=== PATIENT | female | born 1995 | race Caucasian/White ===

== ENCOUNTER 2017-01-15 19:06 | Emergency (ER) | payer OTHER ==
[2017-01-15 19:04] LABS: URINE SOURCE CLEAN CATCH
[~2017-01-15 19:06] MED LIST: MACROBID100 MG DOB; NEXPLANON68 MG; TOPAMAX25 MG DOB; VICODIN PO; ZOFRANODT PO
[2017-01-15 19:09] LABS: INFLUENZA A POS (NEG); INFLUENZA B NEG (NEG)
[2017-01-15 19:11] LABS: URINE APPEARANCE CLEAR; URINE BILIRUBIN NEG (NEG); URINE BLOOD NEG (NEG); URINE COLOR YELLOW; URINE GLUCOSE NEG (NEG); URINE KETONE NEG (NEG); URINE LEUKOCYTE ESTERASE 1+ (NEG); URINE NITRATE NEG (NEG); URINE PH 7.5 (5-8); URINE PROTEIN NEG (NEG); URINE SPECIFIC GRAVITY 1.015 (1.003-1.035); URINE UROBILINOGEN 0.2 MG/DL (NEG)
[2017-01-15 19:14] LABS: CULTURE INDICATED? YES; URINE BACTERIA AUWI 1+ (NEGATIVE); URINE SQUAMOUS EPITHELIAL CELL OCC /[HPF]
== END 2017-01-15 19:20 | disposition home or self-care (01) ==
LOC: CFTX 19:06
PROVIDERS: Emergency Medicine; Physician Assistant
DX: J10.1 Influenza due to other identified influenza virus with other respiratory manifestations (principal); G43.909 Migraine, unspecified, not intractable, without status migrainosus; Z90.49 Acquired absence of other specified parts of digestive tract; Z88.8 Allergy status to other drugs, medicaments and biological substances
CPT/HCPCS: 81003; 87086; 87651; 87804; 87880; 99283

== ENCOUNTER 2017-01-17 17:36 | Emergency (ER) | payer OTHER | END 2017-01-17 20:05 | disposition home or self-care (01) | LOC: CFTX 17:36 | DX: O99.513 Diseases of the respiratory system complicating pregnancy, third trimester (principal); J10.1 Influenza due to other identified influenza virus with other respiratory manifestations; G43.909 Migraine, unspecified, not intractable, without status migrainosus; Z3A.35 35 weeks gestation of pregnancy; Z90.49 Acquired absence of other specified parts of digestive tract; Z88.5 Allergy status to narcotic agent | CPT/HCPCS: 94640; 96360; 99284 ==

== ENCOUNTER 2017-03-20 21:51 | Emergency (ER) | payer OTHER ==
--- NOTE | ~2017-03-20 | CR21 ---
[facility] A Service of [facility] & [facility] RADIOLOGY TEXT RESULTS PATIENT: LUIS MCKINNEY LOCATION: [facility] : [birth year] UNIT #: [id number] AGE: [address]: Abiel Bertrand SEX: F ORDER DR: [id number] [facility] [address] [place], [place] [address] [id number] P MR#: [id number] Acc #: [id number] NAME: LUIS MCKINNEY : 1995 SEX: F STUDY DATE/TIME: 03/20/2017 20:32 UNIT: [facility] ROOM: STUDY DESCRIPTION: CR Ankle Min 3 Views Rt Ordering Physician: Ed Edouard Rowan M.D. Primary Care Physician: Brynn Pena M.D. MEDICAL IMAGING REPORT This report is preliminary unless electronic signature is present EXAM Right ankle, 3 views. DATE OF EXAM 03/20/2017 HISTORY Right ankle pain and swelling, status post fall today. FINDINGS 3 views of the right ankle demonstrate no fracture. The bones are normally mineralized and the ankle mortise is intact. There is soft tissue swelling about the right ankle. IMPRESSION Soft tissue swelling about the right ankle. No evidence of fracture. Dictated by... Florin Marquez M.D. THIS IS AN ELECTRONICALLY VERIFIED REPORT Florin Marquez M.D. at 03/21/2017 2:20 PM YSABEL/john TD: 03/20/2017 21:19 JOB #: [id number] MEDICAL IMAGING REPORT Page 1 of 1 COPY
--- NOTE | ~2017-03-20 | CR127 ---
[facility] A Service of [facility] & [facility] RADIOLOGY TEXT RESULTS PATIENT: LUIS MCKINNEY LOCATION: [facility] : [birth year] UNIT #: [id number] AGE: [address]: Abiel Bertrand SEX: F ORDER DR: [id number] [facility] [address] [place], [place] [address] [id number] P MR#: [id number] Acc #: [id number] NAME: LUIS MCKINNEY : 1995 SEX: F STUDY DATE/TIME: 03/20/2017 20:28 UNIT: [facility] ROOM: STUDY DESCRIPTION: CR Foot Complete Min 3 View Rt Ordering Physician: Ed Edouard Rowan M.D. Primary Care Physician: Brynn Pena M.D. MEDICAL IMAGING REPORT This report is preliminary unless electronic signature is present EXAM Right foot, 3 views. DATE OF EXAM 03/20/2017 HISTORY Right foot pain and swelling anteriorly, status post fall today. FINDINGS The tarsal, metatarsal, and phalangeal elements are all anatomically normal in position and alignment. There are no articular defects. No fractures or radiopaque foreign bodies in the soft tissues are apparent. IMPRESSION Normal right foot. Dictated by... Florin Marquez M.D. THIS IS AN ELECTRONICALLY VERIFIED REPORT Florin Marquez M.D. at 03/21/2017 2:20 PM YSABEL/john TD: 03/20/2017 21:18 JOB #: [id number] MEDICAL IMAGING REPORT Page 1 of 1 COPY
== END 2017-03-20 22:20 | disposition home or self-care (01) ==
LOC: CFTX 21:51
DX: S93.401A Sprain of unspecified ligament of right ankle, initial encounter (principal); Z88.5 Allergy status to narcotic agent; W18.30XA Fall on same level, unspecified, initial encounter; Y92.9 Unspecified place or not applicable
CPT/HCPCS: 29405; 73610; 73630; 99283

== ENCOUNTER 2017-05-29 19:45 | Emergency (ER) | payer OTHER ==
--- NOTE | ~2017-05-29 | CR20 ---
[facility] A Service of [facility] & [facility] RADIOLOGY TEXT RESULTS PATIENT: LUIS MCKINNEY LOCATION: [facility] : [birth year] UNIT #: [id number] AGE: [address]: Epi Menon MD SEX: F ORDER DR: [id number] [facility] [address] [place], [place] [address] [id number] MR#: [id number] Acc #: [id number] NAME: LUIS MCKINNEY : 1995 SEX: F STUDY DATE/TIME: 05/29/2017 20:06 UNIT: [facility] ROOM: STUDY DESCRIPTION: CR Ankle Min 3 Views Lt Attending Physician: Epi Menon M.D. Ordering Physician: Ed Doc Suyapa Rowan Primary Care Physician: Brynn Pena M.D. MEDICAL IMAGING REPORT This report is preliminary unless electronic signature is present EXAM Left ankle, 3 views; 05/29/2017, 2006 hours. HISTORY 22-year-old with ankle pain, swelling and numbness since fall on 05/29/2017. COMPARISON Left ankle, 04/08/2011. FINDINGS AP, lateral and oblique views demonstrate lateral soft tissue swelling with no fracture or dislocation. IMPRESSION Lateral soft tissue swelling with no fracture or dislocation. Dictated by... Mattie Fried M.D. THIS IS AN ELECTRONICALLY VERIFIED REPORT Mattie Fried M.D. at 05/30/2017 9:27 AM Edmund TD: 05/29/2017 22:21 JOB #: [id number] MEDICAL IMAGING REPORT Page 1 of 1 COPY
== END 2017-05-29 21:13 | disposition home or self-care (01) ==
LOC: CFTX 19:45 → CED 19:45 → CFTX 20:47
DX: S93.402A Sprain of unspecified ligament of left ankle, initial encounter (principal); Z88.5 Allergy status to narcotic agent; W19.XXXA Unspecified fall, initial encounter
CPT/HCPCS: 29540; 73610; 96372; 99283; J1885